=== PATIENT | male | born 1950 ===

== ENCOUNTER → 2017-07-26 | Outpatient (CLI) | payer MEDICARE, OTHER ==
[~2017-07-26] MED LIST: ASPI-757 PO; ATOR20TA65 PO; CARV12.578 PO; DOCU-416 PO; DULO60CA56 PO; GLUCOSAMINE 1,1 EACH PO; IBUP-1671 PO; IBUP-56 PO; METO50TA19 PO; MULT-1335 PO; OXYC-865 PO; PER PO; RUTI1TAB3 PO; [UNRECOGNIZED DRUG - CODE] TP
== END ==
LOC: LAB 09:43
PROVIDERS: ATTEND Urology
DX: R97.20 Elevated prostate specific antigen [PSA] (principal)
CPT/HCPCS: 36415; 84153

== ENCOUNTER → 2017-09-08 | Outpatient (CLI) | payer MEDICARE, OTHER ==
[~2017-09-08] MED LIST changes: +GLUC-135 PO; +PNEU0.5D3 IM
[2017-09-08 08:28] LABS: PLATELET COUNT, AUTOMATED 204 K/uL (150-450)
== END ==
LOC: LAB 07:50
PROVIDERS: ATTEND Internal Medicine
DX: I10 Essential (primary) hypertension (principal); E78.4 Other hyperlipidemia; I34.1 Nonrheumatic mitral (valve) prolapse
CPT/HCPCS: 36415; 81001; 82040; 82247; 82310; 82374; 82435; 82465; 82565; 82947; 83718; 84075; 84132; 84155; 84295; 84443; 84450; 84460; 84478; 84520; 85025

== ENCOUNTER → 2017-09-09 | Outpatient (CLI) | payer MEDICARE, OTHER ==
--- NOTE | 2017-09-29 10:14 | RADIOLOGY IMAGING REPORT ---
FACILITY: [facility] PATIENT NAME: GAVINO BENITEZ : [id number] MR: [id number] V: [id number] EXAM DATE: ORDERING PHYSICIAN: MARY CARMEN HEREDIA TECHNOLOGIST: Milagros Fitzgerald EXAMINATION:TWO-DIMENSIONAL ECHOCARDIOGRAPH REASON:MITRAL VALVE PROLAPSE. 2D Measurements (normal values in centimeters) LV endLV endRV endVent.LV PostAorticLeftPercent DiastolicSystolicDiastolicSeptumWallRootAtriumShortening (3.5-5.7)(0.9-2.6)(0.6-1.1)(0.6-1.1)(2.0-3.7)(1.9-4.0)(25-35%) [id number]% STROKE VOLUME: 74ml ESTIMATED EJECTION FRACTION:63% PARASTERNAL LONG AXIS: Overall left ventricular systolic function appears to be normal. Left atrium appears to be mildly enlarged. The aortic valve appears to open normally. There is prolapse of the posterior leaf of the mitral valve. The leaflets do appear to coapt so there is no flail leaflet. Co examination of the mitral valve reveals some mitral insufficiency. PARASTERNAL SHORT AXIS: Overall left ventricular function appears to be normal. The aortic valve was difficult to see. I cannot really tell the configuration is possibly bicuspid in nature. APICAL FOUR AND TWO CHAMBER: Normal left ventricular systolic function. Again there appears to be some prolapse but no flail leaflet of the mitral valve. Left atrium is mildly enlarged. Color examination of the mitral valve reveals an eccentric mitral regurgitation jet, directed toward the free wall of the left atrium. A mild amount of tricuspid insufficiency is noted. Tricuspid regurgitation being measured Vmax 3.03mt/2. Aortic valve area and mitral valve area both measure within normal range of 2.4 and 2.0cm2 respectively. The left atrium volume is mildly increased at 32ml/mt2. Right atrial volume is measured within normal ranges at 16ml/mt2. SUBCOSTAL VIEW: No pericardial effusion was noted. No atrioseptal or ventriculoseptal defects were appreciated. Doppler examination of the mitral valve in diastole does reveal the A wave > E wave. IVC is normal in size. Medial and lateral E prime velocities are decreased suggesting decreased diastolic function. OVERALL IMPRESSION: 1. Normal left ventricular ejection fraction with a Grade 2/ 4 decrease in diastolic function. 2. Mild left atrial enlargement, the other chamber sizes being normal. 3. A mild amount of tricuspid insufficiency with estimated right ventricular systolic pressures at 40mm Hg which does include an estimated right atrial pressure of 3mm Hg indicating a mild pulmonary hypertension and increased right ventricular systolic pressures. 4. There is prolapse of the posterior leaf of the mitral valve. There is no flail leaflet as the valve leaflet tips do appear to coapt. There is a mild to moderate amount of mitral insufficiency present. 5. Aortic valve. I was unable to accurately characterize the morphology of the aortic valve it is possibly bicuspid in nature. There was no stenosis of the valve. Possibly a trace of aortic insufficiency was noted. Dictated by: Sherry Mccall M.D. on 09/27/2017 at 16:38 Transcribed by: DIGNA on 09/29/2017 at 10:07 Approved by: Sherry Mccall M.D. on 09/29/2017 at 10:12 [facility]
== END ==
LOC: US 03:02
PROVIDERS: ATTEND Internal Medicine
DX: I50.30 Unspecified diastolic (congestive) heart failure (principal); I51.7 Cardiomegaly; I07.1 Rheumatic tricuspid insufficiency; I27.20 Pulmonary hypertension, unspecified; I34.1 Nonrheumatic mitral (valve) prolapse; I34.0 Nonrheumatic mitral (valve) insufficiency
CPT/HCPCS: 93306

== ENCOUNTER → 2017-12-27 | Outpatient (CLI) | payer MEDICARE, OTHER ==
[2017-12-27 11:56] LABS: PLATELET COUNT, AUTOMATED 221 K/uL (150-450)
[2017-12-27 12:10] LABS: LDL CHOLESTEROL 56 mg/dl
== END ==
LOC: LAB 11:29
PROVIDERS: ATTEND Internal Medicine
DX: I10 Essential (primary) hypertension (principal); E78.5 Hyperlipidemia, unspecified; I34.1 Nonrheumatic mitral (valve) prolapse
CPT/HCPCS: 36415; 81001; 82040; 82247; 82310; 82374; 82435; 82465; 82565; 82947; 83718; 84075; 84132; 84155; 84295; 84443; 84450; 84460; 84478; 84520; 85025

== ENCOUNTER → 2018-11-09 | Outpatient (CLI) | payer MEDICARE, OTHER ==
[~2018-11-09] MED LIST changes: +PNEI IJ
[2018-11-09 08:55] LABS: PLATELET COUNT, AUTOMATED 193 K/uL (150-450)
[2018-11-09 09:10] LABS: LDL CHOLESTEROL 34 mg/dl
== END ==
LOC: LAB 08:13
PROVIDERS: ATTEND Internal Medicine
DX: I10 Essential (primary) hypertension (principal); E78.5 Hyperlipidemia, unspecified
CPT/HCPCS: 36415; 81001; 82040; 82247; 82310; 82374; 82435; 82465; 82565; 82947; 83718; 84075; 84132; 84155; 84295; 84443; 84450; 84460; 84478; 84520; 85025